=== PATIENT | female | born 1995 | race Caucasian/White ===

== ENCOUNTER 2019-01-29 18:28 | Emergency (ER) | payer OTHER ==
[2019-01-29 18:46] VITALS: BP 133/67
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
[2019-01-29] MEDS ORDERED: Silver Sulfadiazine 1%* 20 GM TOPICAL ONE (19:18)
[2019-01-29] MEDS ORDERED: Tetan/Diph/Pertus SYR(Tdap)* 0.5 ML SYR(BOOSTRIX) use SYR IM ONE (19:32)
== END 2019-01-29 20:20 | disposition home or self-care (01) ==
LOC: UCEAST 18:28
DX: T22.222A Burn of second degree of left elbow, initial encounter (principal); T21.29XA Burn of second degree of other site of trunk, initial encounter; T31.0 Burns involving less than 10% of body surface; X10.0XXA Contact with hot drinks, initial encounter; Y92.9 Unspecified place or not applicable; Z23 Encounter for immunization
CPT/HCPCS: 16020; 90471; 90715; 99202; A9270-GY; G0463